=== PATIENT | female | born 1955 | race Caucasian/White ===

== ENCOUNTER 2017-02-11 13:40 | Outpatient (CLI) | payer OTHER ==
[2017-02-11] MEDS ORDERED: ALBUTEROL NEB 2.5 MG/3 ML INH ONE (16:13)
== END 2017-02-11 13:41 | disposition home or self-care (01) ==
LOC: RT 13:40
PROVIDERS: ATTEND Family Medicine
DX: R05 Cough (principal)
CPT/HCPCS: 94060; 94729; J7613

== ENCOUNTER 2017-10-01 05:34 | Emergency (ER) | payer OTHER ==
[2017-10-01 05:41] VITALS: BP 144/76
[2017-10-01 06:01] LABS: BILIRUBIN,URINE NEGATIVE (NEGATIVE); GLUCOSE, URINE (UA) NEGATIVE (NEGATIVE); KETONES,URINE (UA) NEGATIVE (NEGATIVE); LEUKOCYTE ESTERASE, URINE NEGATIVE (NEGATIVE); NITRITE,URINE POSITIVE (NEGATIVE); OCCULT BLOOD,URINE LARGE (NEGATIVE); PH,URINE 5.5 PH (5.0-7.5); PROTEIN,URINE 100 mg/dL (NEGATIVE); UROBILINOGEN,URINE 0.2 (NORMAL) E.U./dL (NORMAL)
[2017-10-01 06:08] LABS: CLARITY,URINE CLOUDY (CLEAR)
[2017-10-01 06:09] LABS: BACTERIA,URINE Few /HPF (None Seen); RBC,URINE TNTC /HPF (0-5); SQUAMOUS EPITHELIAL CELL,UR FEW Squamous (<= Few)
[2017-10-01] MEDS ORDERED: cephALEXin 250 MG CAPSULE PO STA (06:11)
--- NOTE | 2017-10-01 06:14 | ED Physician Documentation ---
PD HPI FEMALE - Stated complaint Stated Complaint: FEMALE - Chief complaint Chief Complaint: Abd Pain - History obtained from History obtained from: Patient, Family - History of Present Illness Timing - onset: Today Timing - details: Abrupt onset Associated symptoms: Pelvic pain, Dysuria, Urinary frequency, Hematuria. No: Fever Recently seen: Not recently seen - Additional information Additional information: Patient is a 61 year old diabetic female who is presenting to the emergency department for dysuria and hematuria. patient states that she woke up to go to the bathroom and when she went it was painful and bloody. Patient had a second episode that was similar so she took azo and came to the emergency department for evaluation. Review of Systems Constitutional: denies: Fever, Chills Eyes: reports: Reviewed and negative Ears: reports: Reviewed and negative Nose: reports: Reviewed and negative Throat: reports: Reviewed and negative Cardiac: denies: Chest pain / pressure Respiratory: reports: Reviewed and negative GI: reports: Abdominal Pain. 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 - Present Medications Home Medications: Ambulatory Orders Medication Instructions Recorded Confirmed Albuterol [Ventolin Hfa] 03/19/15 03/19/15 Dicyclomine [Bentyl] 20 mg PO QID 03/19/15 03/19/15 Fluticasone [Flonase] 1 spray DAILY 03/19/15 03/19/15 Lisinopril 5 mg PO DAILY 03/19/15 03/19/15 Simvastatin 10 mg PO DAILY 03/19/15 03/19/15 metFORMIN [Glucophage] 500 mg PO DAILY 03/19/15 03/19/15 Amoxicillin/Potassium Clav 1 each PO BID 7 Days tablet 10/07/15 [Augmentin 875-125 Tablet] Cephalexin [Keflex] 500 mg PO Q8HR 7 Days capsule 10/01/17 - Allergies Allergies/Adverse Reactions: Allergies Allergy/AdvReac Type Severity Reaction Status Date / Time methylsalicilate Allergy Hives Uncoded 10/01/17 05:43 - Social History Does the pt smoke?: No Smoking Status: Never smoker Does the pt drink ETOH?: Yes Does the pt have substance abuse?: No - Immunizations Immunizations are current?: Yes - POLST Patient has POLST: No PD ED PE NORMAL - Vitals Vital signs reviewed: Yes - General General: Alert and oriented X 3, No acute distress - HEENT HEENT: Atraumatic, PERRL - Neck Neck: Supple, no meningeal sign - Cardiac Cardiac: RRR - Respiratory Respiratory: No respiratory distress - Abdomen Abdomen: Soft, Non distended - Back Back: No CVA TTP - Derm Derm: Normal color, Warm and dry, No rash - Extremities Extremities: No deformity - Neuro Neuro: Alert and oriented X 3, No motor deficit, Normal speech Eye Opening: Spontaneous Results - Vitals Vitals: Vital Signs - 24 hr 10/01/17 05:39 Temperature 36.1 C L Heart Rate 91 Respiratory 16 Rate Blood Pressure 144/76 H O2 Saturation 99 Oxygen O2 Source Room air - Labs Labs: Laboratory Tests 10/01/17 05:45 Urine Color RED/BLOODY Urine Clarity CLOUDY Urine pH 5.5 Ur Specific [place] 1.020 Urine Protein 100 H Urine Glucose (UA) NEGATIVE Urine Ketones NEGATIVE Urine Occult Blood LARGE H Urine Nitrite POSITIVE H Urine Bilirubin NEGATIVE Urine Urobilinogen 0.2 (NORMAL) Ur Leukocyte Esterase NEGATIVE Urine RBC TNTC H Urine WBC 11-25 H Ur Squamous Epith Cells FEW Squamous Urine Bacteria Few Ur Microscopic Review INDICATED Urine Culture Comments INDICATED PD MEDICAL DECISION MAKING - ED course Complexity details: reviewed old records, reviewed results, re-evaluated patient , considered differential, d/w patient, d/w family ED course: Patient was seen and examined at bedside. Patient's urine was collected and was consistent with cystitis. patient was treated with keflex. prescriptions were writtne and patient was stable for discharge with outpatient follow up. Departure - Departure Disposition: 01 Home, Self Care Clinical Impression: Cystitis Condition: Good Instructions: ED UTI Cystitis Female Follow-Up: VALARIE RAPP [Primary Care Provider] - As Needed Prescriptions: Cephalexin [Keflex] 500 mg PO Q8HR 7 Days capsule Comments: Your symptoms today are being caused by cystitis, an infection of your bladder. You are getting your first dose of antibiotics today and will be on them three times a day for the next week. You can take motrin, tylenol and azo as needed for pain. It is important that you stay well hydrated. You should follow up with your doctor early next week if your symptoms aren't improving. You may return to the emergency department at any time for new, worsening or uncontrollable symptoms.
== END 2017-10-01 06:23 | disposition home or self-care (01) ==
LOC: ED 05:34
DX: N30.01 Acute cystitis with hematuria (principal); E78.00 Pure hypercholesterolemia, unspecified; E11.9 Type 2 diabetes mellitus without complications; Z79.84 Long term (current) use of oral hypoglycemic drugs
CPT/HCPCS: 81001; 87086; 99283; A9270; 81003

== ENCOUNTER 2019-07-06 21:01 | Emergency (ER) | payer OTHER ==
[2019-07-06 21:07] VITALS: BP 145/70
[2019-07-06 21:19] LABS: BILIRUBIN,URINE NEGATIVE (NEGATIVE); GLUCOSE, URINE (UA) NEGATIVE (NEGATIVE); KETONES,URINE (UA) TRACE mg/dL (NEGATIVE); LEUKOCYTE ESTERASE, URINE TRACE (NEGATIVE); NITRITE,URINE NEGATIVE (NEGATIVE); OCCULT BLOOD,URINE LARGE (NEGATIVE); PROTEIN,URINE 100 mg/dL (NEGATIVE); UROBILINOGEN,URINE 0.2 (NORMAL) E.U./dL (NORMAL)
[2019-07-06 21:21] LABS: CLARITY,URINE CLOUDY (CLEAR)
[2019-07-06 21:27] LABS: BACTERIA,URINE Many /HPF (None Seen); RBC,URINE TNTC /HPF (0-5); SQUAMOUS EPITHELIAL CELL,UR FEW Squamous (<= Few)
[2019-07-06] MEDS ORDERED: NITROFURANTOIN MACRO 100 MG CAPSULE PO STA (21:32)
--- NOTE | 2019-07-06 21:33 | ED Physician Documentation ---
PD HPI FEMALE - Stated complaint Stated Complaint: F - Chief complaint Chief Complaint: UTI - History obtained from History obtained from: Patient - History of Present Illness Timing - onset: Today (Dysuria and burning starting within the last few hours, no flank pain or fevers. 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 - Present Medications Home Medications: Ambulatory Orders Medication Instructions Recorded Confirmed Albuterol [Ventolin Hfa] 03/19/15 03/19/15 Dicyclomine [Bentyl] 20 mg PO QID 03/19/15 03/19/15 Fluticasone [Flonase] 1 spray DAILY 03/19/15 03/19/15 Lisinopril 5 mg PO DAILY 03/19/15 03/19/15 Simvastatin 10 mg PO DAILY 03/19/15 03/19/15 metFORMIN [Glucophage] 500 mg PO DAILY 03/19/15 03/19/15 Amoxicillin/Potassium Clav 1 each PO BID 7 Days tablet 10/07/15 [Augmentin 875-125 Tablet] Cephalexin [Keflex] 500 mg PO Q8HR 7 Days capsule 10/01/17 Nitrofurantoin Monohyd/M-Cryst 100 mg PO BID #10 capsule 07/06/19 [Macrobid 100 mg Capsule] - Allergies Allergies/Adverse Reactions: Allergies Allergy/AdvReac Type Severity Reaction Status Date / Time methylsalicilate Allergy Hives Uncoded 07/06/19 21:03 - Social History Does the pt smoke?: No Smoking Status: Never smoker Does the pt drink ETOH?: Yes Does the pt have substance abuse?: No - Immunizations Immunizations are current?: Yes - POLST Patient has POLST: No PD ED PE NORMAL - Vitals Vital signs reviewed: Yes - General General: Alert and oriented X 3, No acute distress - Abdomen Abdomen: Soft, Non tender - Back Back: No CVA TTP - Neuro Neuro: Alert and oriented X 3, Normal speech Results - Vitals Vitals: Vital Signs - 24 hr 07/06/19 21:03 Temperature 36.5 C Heart Rate 94 Respiratory 14 Rate Blood Pressure 145/70 H O2 Saturation 99 Oxygen O2 Source Room air - Labs Labs: Laboratory Tests 07/06/19 21:15 Urine Color BROWN Urine Clarity CLOUDY Urine pH 5.0 Ur Specific [place] >=1.030 H Urine Protein 100 H Urine Glucose (UA) NEGATIVE Urine Ketones TRACE Urine Occult Blood LARGE H Urine Nitrite NEGATIVE Urine Bilirubin NEGATIVE Urine Urobilinogen 0.2 (NORMAL) Ur Leukocyte Esterase TRACE H Urine RBC TNTC H Urine WBC 11-25 H Ur Squamous Epith Cells FEW Squamous Urine Bacteria Many H Ur Microscopic Review INDICATED Urine Culture Comments INDICATED Departure - Departure Disposition: 01 Home, Self Care Clinical Impression: Cystitis Condition: Critical Instructions: ED UTI Cystitis Female Prescriptions: Nitrofurantoin Monohyd/M-Cryst [Macrobid 100 mg Capsule] 100 mg PO BID #10 capsule Comments: We will culture your urine, the results should be done in 48-72 hours. If an antibiotic change is necessary we will call you. Return if worse in the meantime, especially if you develop increasing flank pain, fevers, or cannot keep down the medication.
== END 2019-07-06 21:43 | disposition home or self-care (01) ==
LOC: ED 21:01
DX: N30.90 Cystitis, unspecified without hematuria (principal); E11.9 Type 2 diabetes mellitus without complications; Z79.84 Long term (current) use of oral hypoglycemic drugs
CPT/HCPCS: 81001; 87086; 99283; A9270; 81003

== ENCOUNTER 2021-08-05 08:00 | Outpatient (CLI) | payer OTHER ==
[2021-08-05 15:31] LABS: BILIRUBIN,URINE NEGATIVE (NEGATIVE); GLUCOSE, URINE (UA) NEGATIVE (NEGATIVE); KETONES,URINE (UA) NEGATIVE (NEGATIVE); LEUKOCYTE ESTERASE, URINE TRACE (NEGATIVE); NITRITE,URINE NEGATIVE (NEGATIVE); OCCULT BLOOD,URINE LARGE (NEGATIVE); PROTEIN,URINE 100 mg/dL (NEGATIVE); UROBILINOGEN,URINE 0.2 (NORMAL) E.U./dL (NORMAL)
[2021-08-05 15:51] LABS: BACTERIA,URINE Rare /HPF (None Seen); CLARITY,URINE BLOODY (CLEAR); RBC,URINE TNTC /HPF (0-5); SQUAMOUS EPITHELIAL CELL,UR FEW Squamous (<= Few)
== END 2021-08-05 23:59 | disposition home or self-care (01) ==
LOC: LAB.S 08:00
PROVIDERS: ATTEND Emergency Medicine
DX: R30.0 Dysuria (principal)
CPT/HCPCS: 81001; 87086

== ENCOUNTER 2022-06-21 11:01 | Outpatient (CLI) | payer MEDICARE, OTHER ==
--- NOTE | 2022-06-22 09:54 | Mammography Report ---
BILATERAL DIGITAL SCREENING MAMMOGRAM 3D/2D: 06/21/2022 CLINICAL: Routine screening. Comparison is made to exam dated: 03/28/2015 mammogram - [facility]. Both breasts are almost entirely fatty (category a/<25% glandular tissue). No significant masses, calcifications, or other findings are seen in either breast. There has been no significant interval change. IMPRESSION: NEGATIVE There is no mammographic evidence of malignancy. A 1 year screening mammogram is recommended. Based on the Tyrer Cuzick model (a risk assessment model) the patients lifetime risk is 6.1% and her 10 year risk is 2.9%. According to the ACR, ACS, and NCCN guidelines, an annual breast MRI exam katherine g with mammogram is recommended if the patients lifetime risk is 20% or greater. This exam was interpreted at Station ID: [id number]. NOTE: For mammograms, a report in lay terms will be sent to the patient. Approximately 15% of breast malignancies will not be visualized mammographically. In the management of a palpable breast mass, a negative mammogram must not discourage biopsy of a clinically suspicious lesion. Electronically Signed By: Sammy benson/penrad:06/21/2022 12:25:51 ACR BI-RADS Category 1: Negative 3341F PARENCHYMAL PATTERN: (F) - The breast(s) demonstrate(s) diffuse fatty replacement. BI-RADS CATEGORY: (1) - 1 RECOMMENDATION: (ANNUAL) - Recommend routine annual screening mammography. [id number] 1 year screening LATERALITY: (B)
== END 2022-06-21 11:02 | disposition home or self-care (01) ==
LOC: DI.S 11:01
PROVIDERS: ATTEND Nurse Practitioner Family
DX: Z12.31 Encounter for screening mammogram for malignant neoplasm of breast (principal)

== ENCOUNTER 2022-06-21 11:03 | Outpatient (CLI) | payer MEDICARE, OTHER ==
--- NOTE | 2022-06-21 17:03 | XRAY Report ---
PROCEDURE: Shoulder 3 View LT INDICATIONS: LEFT SHOULDER PAIN TECHNIQUE: 3 views of the shoulder were acquired. COMPARISON: None. FINDINGS: Bones: No fractures or dislocations. No suspicious bony lesions. There is moderate acromioclavicula r and mild glenohumeral joint degeneration. Small intra-articular bodies versus rotator cuff tendon ca lcific tendinitis. Visualized ribs appear intact. Soft tissues: No suspicious soft tissue calcifications. IMPRESSION: 1. Degenerative joint disease. 2. Intra-articular body versus rotator cuff tendon calcific tendinitis. 3. If clinical symptoms persist, MRI would be helpful. Reviewed by: Parisa Puckett MD on 06/21/2022 5:01 PM PST Approved by: Parisa Puckett MD on 06/21/2022 5:01 PM PST Station ID: [id number]
== END 2022-06-21 11:04 | disposition home or self-care (01) ==
LOC: DI.S 11:03
PROVIDERS: ATTEND Nurse Practitioner Family
DX: M19.012 Primary osteoarthritis, left shoulder (principal)

== ENCOUNTER 2024-02-06 20:45 | Emergency (ER) | payer MEDICARE, OTHER ==
--- NOTE | 2024-02-06 21:09 | ED Physician Documentation ---
PD HPI ABD PAIN - Stated complaint Stated Complaint: GI - Chief complaint Chief Complaint: Abd Pain - History obtained from History obtained from: Patient - Additional information Additional information: She has a history of IBS, has not had a flare in many years but woke this morning with the sensation that she was going to have an IBS flare again. It is marked by vomiting and pain. The pain is much better than it was earlier but she still quite nauseous. She also feels dry. And distended. She declines anything for pain on initial evaluation. No history of abdominal surgeries. She is a diabetic as well. 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 - Present Medications Home Medications: Ambulatory Orders Medication Instructions Recorded Confirmed Albuterol [Ventolin Hfa] 03/19/15 03/19/15 Simvastatin 10 mg PO HS 03/19/15 02/06/24 Dicyclomine [Bentyl] 1 - 2 tab PO QID PRN #20 cap 02/06/24 Dulaglutide [Trulicity] 1.5 mg SUBQ ONCE 02/06/24 02/06/24 Empagliflozin [Jardiance] 10 mg PO HS 02/06/24 02/06/24 Escitalopram [Lexapro] 10 mg PO BID 02/06/24 02/06/24 Insulin Glargine [Lantus Solostar] 26 units SUBQ DAILY 02/06/24 02/06/24 Losartan Potassium 25 mg PO DAILY 02/06/24 02/06/24 Metformin HCl 1,000 mg PO BID 02/06/24 02/06/24 Multivit with Iron,Minerals 1 tab PO HS 02/06/24 02/06/24 [Multivitamins with Iron] buPROPion [Wellbutrin Xl] 150 mg PO DAILY 02/06/24 02/06/24 - Allergies Allergies/Adverse Reactions: Allergies Allergy/AdvReac Type Severity Reaction Status Date / Time methylsalicilate Allergy Hives Uncoded 02/06/24 20:51 - Social History Does the pt smoke?: No Smoking Status: Never smoker Does the pt drink ETOH?: Yes Does the pt have substance abuse?: No - Immunizations Immunizations are current?: Yes - POLST Patient has POLST: No PD ED PE NORMAL - Vitals Vital signs reviewed: Yes - General General: Alert and oriented X 3, No acute distress - HEENT HEENT: Other (Dry mucous membranes) - Cardiac Cardiac: RRR, No murmur - Respiratory Respiratory: No respiratory distress, Clear bilaterally - Abdomen Abdomen: Other (Diminished but high-pitched bowel sounds. No tenderness. Possibly distended.) - Extremities Extremities: No calf tenderness / cord - Neuro Neuro: Alert and oriented X 3 Results - Vitals Vitals: Vital Signs - 24 hr 02/06/24 02/06/24 20:51 22:55 Temperature 36.8 C Heart Rate 99 75 Respiratory 18 18 Rate Blood Pressure 149/73 H 133/68 H O2 Saturation 98 98 Oxygen O2 Source Room air - Labs Labs: Laboratory Tests 02/06/24 02/06/24 02/06/24 21:00 21:20 21:20 WBC 15.7 H RBC 5.26 Hgb 15.6 Hct 47.3 H MCV 89.9 MCH 29.7 MCHC 33.0 RDW 12.9 Plt Count 307 MPV 9.5 Neut # (Auto) 14.4 H Lymph # (Auto) 0.6 L Hughes # (Auto) 0.7 Eos # (Auto) 0.0 Baso # (Auto) 0.1 Absolute Nucleated RBC 0.00 Nucleated RBC % 0.0 Sodium 137 Potassium 4.6 H Chloride 96 L Carbon Dioxide 26 Anion Gap 15.0 H BUN 19 Creatinine 0.8 Estimated GFR (MDRD) 72 L Glucose 223 H Calcium 10.7 H Total Bilirubin 0.6 AST 18 ALT 19 Alkaline Phosphatase 73 Total Protein 8.7 Albumin 5.1 Globulin 3.6 Albumin/Globulin Ratio 1.4 Lipase 21 Urine Color YELLOW Urine Clarity CLEAR Urine pH 5.5 Ur Specific [place] 1.025 Urine Protein 100 H Urine Glucose (UA) >=1000 H Urine Ketones 40 H Urine Occult Blood SMALL H Urine Nitrite NEGATIVE Urine Bilirubin NEGATIVE Urine Urobilinogen 0.2 (NORMAL) Ur Leukocyte Esterase NEGATIVE Urine RBC 0-5 Urine WBC 0-3 Ur Squamous Epith Cells MANY Squamous H Amorphous Sediment Rare Urine Bacteria Few Ur Microscopic Review INDICATED Urine Culture Comments NOT INDICATED - Rads (name of study) CT abdomen pelvis showing possible terminal ileitis versus early SBO Relevant Findings:: Final report received (Hepatic steatosis as well.), EMP independent interpretation of test PD Medical Decision Making - ED course ED course: She has frequent bouts of abdominal pain but this is worse albeit right now its better with vomiting. It sounds like she has recurrent small bowel obstructions and was admitted here for same in 2015. Workup demonstrates a CBC notable for white count of 15,000. Was 19,000 when she was admitted in 2015. CMP notable for hyperglycemia. Urinalysis showing some ketones and glucose. My "wet read" of her CT does show potential bowel obstruction. This was discussed with her and she was feeling much better and actually planning on going home. I discussed with her that if it was a partial bowel obstruction she might be able to go home on a clear liquid diet and CT read is pending on shift change at 11 PM with care to Dr. Erickson at that time. Subsequently final read actually was more consistent with terminal ileitis. Th is would actually explain better her chronic recurrent abdominal pain and abdominal issues more than IBS which is her previous diagnosis. She felt well at that point. Was tolerating oral fluids and very much wanted to go home. I discussed with her and her the need for follow-up colonoscopy as it has been quite sometime since her last. I considered putting her on steroids but she is diabetic and without a clear diagnosis probably would wait. Departure - Departure Disposition: 01 Home, Self Care Clinical Impression: Abdominal pain Qualifiers: Abdominal location: generalized Qualified Code(s): R10.84 - Generalized abdominal pain Condition: Good Record reviewed to determine appropriate education?: Yes Instructions: Obstruction Sm Bowel, Diet Low Residue, Diet Clear Liquid Dc Prescriptions: Dicyclomine [Bentyl] 1 - 2 tab PO QID PRN #20 cap PRN Reason: Abdominal Pain Comments: As discussed, your CT shows changes that I wonder if might be more consistent with inflammatory bowel disease such as Crohn's disease. Follow-up with your primary care physician for referral for repeat colonoscopy, with access of the ileocecal valve if able and biopsies to evaluate for Crohn's disease. I sent the prescription for Bentyl to the [facility] in [place]. Clear liquid diet for the next 24 hours and then a low residue diet for another 24 hours (see attachments). Call your doctor to arrange a follow-up appointment, make the next available appointment. In the interim, return anytime if worse or if new symptoms develop. Forms: PCP List
[2024-02-06] MEDS: ONDANSETRON 4 MG/2 ML VIAL IVP STA (21:23)
[2024-02-06] MEDS: SODIUM CHLORIDE 0.9% 1,000 ML IV STA (21:23)
[2024-02-06 21:27] LABS: BASOPHILS # (AUTO) 0.1 10^3/uL (0.0-0.1); BASOPHILS % (AUTO) 0.3 %; HCT - HEMATOCRIT 47.3 % (37.0-47.0); HGB - HEMOGLOBIN 15.6 g/dL (12.0-16.0); LYMPHOCYTES # (AUTO) 0.6 10^3/uL (1.5-3.5); LYMPHOCYTES % (AUTO) 3.5 %; MEAN CORPUSCULAR HEMOGLOBIN 29.7 pg (27.0-31.0); MEAN CORPUSCULAR VOLUME 89.9 fL (81.0-99.0); MEAN PLATELET VOLUME 9.5 fL (7.9-10.8); MONOCYTES # (AUTO) 0.7 10^3/uL (0.0-1.0); MONOCYTES % (AUTO) 4.2 %; NEUTROPHILS # (AUTO) 14.4 10^3/uL (1.5-6.6); NEUTROPHILS % (AUTO) 91.7 %; PLT - PLATELET COUNT 307 10^3/uL (130-450); RED BLOOD COUNT 5.26 10^6/uL (4.20-5.40); RED CELL DISTRIBUTION WIDTH 12.9 % (12.0-15.0); WHITE BLOOD COUNT 15.7 x10^3/uL (4.8-10.8)
[2024-02-06 21:39] LABS: BILIRUBIN,URINE NEGATIVE (NEGATIVE); GLUCOSE, URINE (UA) >=1000 mg/dL (NEGATIVE); KETONES,URINE (UA) 40 mg/dL (NEGATIVE); LEUKOCYTE ESTERASE, URINE NEGATIVE (NEGATIVE); NITRITE,URINE NEGATIVE (NEGATIVE); OCCULT BLOOD,URINE SMALL (NEGATIVE); PH,URINE 5.5 PH (5.0-7.5); PROTEIN,URINE 100 mg/dL (NEGATIVE); UROBILINOGEN,URINE 0.2 (NORMAL) E.U./dL (NORMAL)
[2024-02-06 21:42] LABS: ALBUMIN 5.1 g/dL (3.2-5.5); ALBUMIN/GLOBULIN RATIO 1.4 (1.0-2.2); BILIRUBIN,TOTAL 0.6 mg/dL (0.2-1.0); CALCIUM 10.7 mg/dL (8.5-10.3); CREATININE 0.8 mg/dL (0.6-1.3); POTASSIUM 4.6 mmol/L (3.5-4.5); TOTAL PROTEIN 8.7 g/dL (6.4-8.9)
[2024-02-06 21:44] LABS: CLARITY,URINE CLEAR (CLEAR)
[2024-02-06 21:52] LABS: AMORPHOUS SEDIMENT,UR Rare /LPF; BACTERIA,URINE Few /HPF (None Seen); RBC,URINE 0-5 /HPF (0-5); SQUAMOUS EPITHELIAL CELL,UR MANY Squamous (<= Few); WBC,URINE 0-3 /HPF (0-5)
[2024-02-06] MEDS ORDERED: iohexoL-300 100 ML VIAL ONE (22:04)
[2024-02-06] MEDS: iohexoL-300 100 ML VIAL IVP ONE (22:31)
--- NOTE | 2024-02-06 23:05 | CT Report ---
PROCEDURE: Abdomen/Pelvis W INDICATIONS: IV only, abd pain CONTRAST: OMNI 300, 100mls TECHNIQUE: After the administration of intravenous contrast, a CT scan of the abdomen and pelvis was performed. Images were recorded and evaluated at appropriate window settings. Reformats: coronal and sagittal. F or radiation dose reduction, the following was used: automated exposure control, adjustment of mA and /or kV according to patient size. COMPARISON: 03/19/2015. FINDINGS: Image quality: Diagnostic. Lower chest: Unremarkable. Liver: Hepatic steatosis. Gallbladder: No radiopaque stones or wall thickening. Biliary tree: No intrahepatic or extrahepatic dilation, accounting for age. Spleen: No splenomegaly. Pancreas: No pancreatic ductal dilation. No peripancreatic inflammation. Adrenals: No adrenal nodule. Kidneys and ureters: No hydronephrosis. No renal cystic lesion which requires follow up. No solid mas s. Stomach, bowel and peritoneum: Scattered colonic diverticula without evidence for acute diverticuliti s. Overall, visualized colon appears decompressed. There is long segment dilated loops of small bowel extending from the proximal small bowel in the left upper abdomen through the distal ileum. No defin ite transition point identified. There appears to be gradual transition from dilated small bowel to t he terminal ileum. Mild circumferential wall thickening of the terminal ileum. Differential air-fluid levels seen. No gastric distention. No pathologic free fluid. Lymph nodes: No central or retroperitoneal adenopathy. Vessels: No infrarenal aortic aneurysm. Patent portal vein. PELVIS Reproductive organs: Unremarkable. Bladder: No abnormal wall thickening, accounting for underdistention. Pelvic lymph nodes: No pelvic adenopathy by size criteria. Bones: No aggressive osseous abnormality. Other: No significant ventral or inguinal hernia. IMPRESSION: There is long segment dilated small bowel with air-fluid levels visualized from the proximal small nestor wel to the terminal ileum where there is mild circumferential wall thickening of the terminal ileum a nd mild inflammatory changes. There appears to be smooth transition from dilated small bowel to the t erminal ileum. Findings may represent acute inflammatory/infectious process of the terminal ileum wit h secondary ileus approximately. Early small bowel obstruction may have a similar appearance. The col on appears decompressed. Colonic diverticulosis without acute diverticulitis. Hepatic steatosis. Reviewed by: Jeffery Cheema MD on 02/06/2024 11:03 PM PDT Approved by: Jeffery Cheema MD on 02/06/2024 11:03 PM PDT Station ID: [id number]
[2024-02-06 23:54] VITALS: BP 145/68; O2SAT 99
== END 2024-02-06 23:50 | disposition home or self-care (01) ==
LOC: ED 20:45
DX: R10.84 Generalized abdominal pain (principal); I10 Essential (primary) hypertension; E78.00 Pure hypercholesterolemia, unspecified; E11.9 Type 2 diabetes mellitus without complications; K58.9 Irritable bowel syndrome, unspecified; Z79.4 Long term (current) use of insulin; Z79.899 Other long term (current) drug therapy
CPT/HCPCS: 36415; 74177; 80053; 81001; 83690; 85025; 96361; 96374; 99284; Q9967; 81003; 87086

== ENCOUNTER 2024-03-06 08:00 | Outpatient (CLI) | payer MEDICARE, OTHER | END 2024-03-06 23:59 | disposition home or self-care (01) | LOC: LAB.N 08:00 | PROVIDERS: ATTEND Registered Nurse | DX: R35.0 Frequency of micturition (principal); R39.15 Urgency of urination; R30.0 Dysuria | CPT/HCPCS: 87077; 87086; 87181 ==